=== PATIENT | male | born 1990 | race Hispanic/Latino ===

== ENCOUNTER 2016-07-13 03:16 | Emergency (ER) | payer OTHER ==
[~2016-07-13] VITALS: Ht 165.1 cm; Wt 107.6 kg
[~2016-07-13 03:16] MED LIST: DILT120T3 PO
[2016-07-13 03:17] VITALS: BP 136/87; PULSE 94; RESP 16; O2SAT 100
[2016-07-13 04:17] LABS: BASOPHILS % (AUTO) 0.2 % (0-3); EOSINOPHILS % (AUTO) 2.1 % (0-5); MONOCYTES % (AUTO) 5.4 % (4-12); Mean Corpuscular Hemoglobin 30.1 pg (27.0-35.0); Mean Corpuscular Volume 84.9 fL (81-100); NEUTROPHILS % (AUTO) 88.9 % (40-74); Platelet Count 307 bil/L (150-400)
[2016-07-13 04:39] LABS: Magnesium 1.8 mg/dL (1.6-2.6)
[2016-07-13 05:10] VITALS: BP 126/84; PULSE 92; RESP 20; O2SAT 97
--- NOTE | 2016-07-13 05:20 | ED.REPORT ---
HPI-Abd Pain M Under 40 Date of Service Jul 13, 2016 ED Provider: Davian Pena MD Patient is a 26 year old male with a history of paroxysmal atrial fibrillation and polysubstance abuse who presents to the ED after he awoke from sleep 2 hours prior to arrival with abdominal pain, bloating, and vomiting. Patient reports ongoing nausea and diarrhea 1x. Patient denies a fever or chills. Patient took a dose of Pepto-Bismol prior to arrival. Nursing Notes Stated Complaint: BLOATED ABDOMEN/NAUSEA/VOMITING Chief Complaint: Male Abdominal Pain Nursing Notes Reviewed: Yes Allergies: Coded Allergies: No Known Allergies (Unverified , 07/13/16) Scheduled Diltiazem (Diltiazem) 120 Mg Tablet 120 MG PO DAILY Ondansetron ODT (Ondansetron ODT) 8 Mg Tab.rapdis 4-8 MG PO QID General Time Seen by MD: 05:19 Chief Complaint Abdominal pain, Diarrhea mild, Nausea, Vomiting moderate Hx Obtained From: Patient Arrived By: Walk-in Sudden in Onset?: No Onset Occurred: 1 - 4 hours ago Symptom Duration: Since onset Location: : Diffuse Quality: Painful Severity: Current: Moderate Severity: Maximum: Moderate Recent Healthcare: No recent doctor visit, No recent hospitalization Similar Sx Previous: No Past Medical History Past Medical History Notes: PCP Dr. Otf Travis Past Medical History Atrial fibrillation in association with methamphetamine and alcohol use Past Surgical History Appendectomy Smoking History Unknown if Ever Smoker Social History +Alcohol usage denies current drug use Drug Use: Cocaine, Meth Other Social History: Good social support, Local resident Ambulatory Status Independent Review of Systems Constitutional: Denies: Chills, Fever GI: Reports: Abdominal pain, Diarrhea, Nausea, Vomiting Complete sys rev & neg: except as marked. Physical Exam Initial Vital Signs Vital Signs (First) Date Time Temp Pulse Resp B/P Pulse Ox O2 Delivery O2 Flow Rate FiO2 07/13/16 03:17 36.2 94 16 136/87 100 Room Air Initial VS: Reviewed, Vital signs normal Head / Eyes: Atraumatic, Normocephalic, PERRL ENT: Mucous membranes moist, Conjunctiva normal, No scleral icterus Neck: Supple, Full range of motion Extremities: Vascular intact, Neuro intact Skin: Warm, Dry, No cyanosis Neurologic: Alert, Oriented, Nonfocal Psychiatric: Mood/affect normal, Behavior normal, Normal thought content General/Constitutional: Awake, Alert, No acute distress, Well hydrated Appearance / Presentation: Positive: Obese Respiratory / Chest: Breath sounds NL, Breath sounds = bilat, No respiratory distress, No rales, No rhonchi, No wheezing Cardiovascular: Heart rate NL, Regular rhythm, Heart sounds NL, No murmurs Abdomen: Soft, Non-tender, No guarding, No rebound Back: Painless range of motion, No CVA tenderness Interpretation & Diagnostics Lab Results Interpretation Result Diagram: 07/13/16 0406 07/13/16 0406 Test 07/13/16 04:06 White Blood Count 18.5th/mm3 (3.8-10.1) Red Blood Count 5.78mil/mm3 (4.40-5.80) Hemoglobin 17.4g/dL (13.8-17.2) Hematocrit 49.1% (41.0-50.0) Mean Corpuscular Volume 84.9fL (81-100) Mean Corpuscular Hemoglobin 30.1pg (27.0-35.0) Mean Corpuscular Hemoglobin Concent 35.4% (32.0-37.0) Red Cell Distribution Width 12.6% (12.3-15.4) Platelet Count 307bil/L (150-400) Neutrophils (%) (Auto) 88.9% (40-74) Lymphocytes (%) (Auto) 3.1% (14-46) Monocytes (%) (Auto) 5.4% (4-12) Eosinophils (%) (Auto) 2.1% (0-5) Basophils (%) (Auto) 0.2% (0-3) Sodium Level 140mEq/L (134-144) Potassium Level 4.3mEq/L (3.5-5.2) Chloride Level 103mEq/L (97-108) Carbon Dioxide Level 25mmol/L (18-29) Blood Urea Nitrogen 14mg/dL (6-20) Creatinine 0.76mg/dL (0.76-1.27) Estimat Glomerular Filtration Rate 130mL/min (>59) Glucose Level 117mg/dL (60-99) Calcium Level 9.2mg/dL (8.5-10.1) Magnesium Level 1.8mg/dL (1.6-2.6) Total Bilirubin 0.7mg/dL (0.0-1.2) Aspartate Amino Transf (AST/SGOT) 70U/L (0-50) Alanine Aminotransferase (ALT/SGPT) 187U/L (0-44) Alkaline Phosphatase 67U/L (25-150) Total Protein 7.9g/dL (6.4-8.4) Albumin 4.8g/dL (3.4-5.0) Lipase 22U/L (13-60) Hold Desai Top Tube Received (Received) Lab Results Interpretation: Elevated white blood count Re-Eval/Medical Decision Med Decision/Clinical Course This patient's presentation is most consistent with a viral gastroenteritis, likely norovirus in this setting of a community norovirus outbreak. His white blood count is elevated, often seen with norovirus. He has a very benign abdominal exam. He Improved dramatically while waiting to be seen. He will be discharged home with a prescription for ondansetron and instructions to purchase [id number] Imodium as needed. Source of Hx: Old records Re-Evaluation/Progress : Time of Eval: 05:30 Patient Status: Condition improved Re-Evaluation/Progress Note: Patient is improved after pepto-bismol. Discussed his lab results and elevated WBC. He will be given Zofran and was told to drink plenty of fluids. Patient understands and agrees with the plan to be discharged home. Discharge instructions and follow-up discussed. All questions were addressed. Return to the ED warnings given. Counseled Regarding: Diagnosis, Lab results, Need for follow-up, When/why to return to ED Patient Discharge & Departure Primary Impression: Gastroenteritis Disposition: Home Discharge Condition All VS Reviewed: Yes Condition: Stable Patient Instructions: Gastroenteritis (ED) Additional Instructions: Your nausea vomiting and diarrhea are most likely caused by norovirus, the cruise ship virus. It has been active in the community of late. It lasts anywhere from 1-7 days. There is no specific treatment. You can use ondansetron (Zofran) 8 mg ODT, one half to one tablet dissolved orally 4 times a day as needed for nausea and vomiting, #10 prescription written. Imodium ( loperamide) 2 pills initially then one pill after each loose bowel movement up to 8 pills in 24 hours, purchase [id number]. Small amounts of clear liquids frequently. Return if you have persistent vomiting. Youalso e have mild inflammation of your liver enzyme tests. This could be from drinking alcohol or from hep C. Talk to your regular doctor about this. Referrals: Otf Faria DO (PCP) Scribe Attestation Portions of this note were transcribed by Rose Amaya. I, Dr. Pena personally performed the history, physical exam and medical decision-making; I reviewed and confirmed the accuracy of the information in the transcribed note. Signed by: Tim Preciado, 07/13/2016 0553 copies to: Otf Faria Howard L MD Jul 13, 2016 05:20 Rose Amaya Jul 13, 2016 05:32
[2016-07-13] MEDS ORDERED: ONDA8TAB10 PO (05:39)
[2016-07-13 06:49] VITALS: BP 130/78; PULSE 88; RESP 16; O2SAT 99
== END 2016-07-13 05:40 | disposition home or self-care (01) ==
LOC: SED 03:16
DX: K52.9 Noninfective gastroenteritis and colitis, unspecified (principal)